=== PATIENT | female | born 1945 | race Caucasian/White ===

== ENCOUNTER 2018-06-29 02:46 | Observation (INO) | payer MEDICARE, OTHER ==
[2018-06-29] MEDS ORDERED: Aspirin Chewable 81 MG TAB ONE (03:00)
[2018-06-29] MEDS ORDERED: Nitroglycerin 2% Ointment 1 INCH/1 GM Packet ONE ×2 (03:00→15:00)
[2018-06-29] MEDS ORDERED: Nitroglycerin 0.4 MG TAB 1 EACH ONE (03:00)
[2018-06-29 03:06] LABS: #Basophils 0.1 thou/uL (0.0-0.2); #Eosinphils 0.5 thou/uL (0.0-0.7); #Lymphocytes 2.5 thou/uL (1.20-3.40); #Monocytes 0.6 thou/uL (0.11-0.59); %Basophils 1.2 % (0.0-1.0); %Eosinophils 5.2 % (0.0-10.0); %Lymphocytes 29.1 % (21.0-51.0); %Monocytes 6.8 % (0.0-10.0); %Neutrophils 57.8 % (42.0-75.0); Hemoglobin 14.4 g/dL (12.0-16.0); Mean Corpuscular HGB CONC 33.5 g/dL (32.0-36.0); Mean Corpuscular Hemoglobin 32.8 pg (27.0-31.0); Mean Platelet Volume 7.6 fL (7.4-10.4); Platelet Count 269 thou/uL (130-400); RBC Distribution Width 11.5 % (11.5-14.5); Red Blood Cell (RBC) Count 4.38 mill/uL (4.20-5.40); White Blood Cell (WBC) Count 8.7 thou/uL (4.8-10.8)
[2018-06-29 03:47] LABS: ALT (SGPT) 22 U/L (8-55); AST (SGOT) 29 U/L (5-34); Albumin 4.4 g/dL (3.4-4.8); Alkaline Phosphatase 106 U/L (40-150); Anion Gap 16 mmol/L (10-20); BUN (Urea Nitrogen) 25 mg/dL (9.8-20.1); Bilirubin, Total 0.2 mg/dL (0.2-1.2); Calc. Creatinine Clearance 0 mL/min (70-130); Calcium 10.2 mg/dL (7.8-10.44); Carbon Dioxide 22 mmol/L (23-31); Chloride 106 mmol/L (98-107); Estimated GFR-MDRD 70; Globulin 2.7 g/dL (2.4-3.5); Glucose 92 mg/dL (83-110); Potassium 4.7 mmol/L (3.5-5.1); Protein, Total 7.1 g/dL (6.0-8.3); Sodium 139 mmol/L (136-145)
[2018-06-29] MEDS ORDERED: Nitroglycerin 0.4 MG TAB (25 Tab Bottle) PO PRN (04:47)
[2018-06-29] MEDS ORDERED: Acetaminophen 325 MG TAB PO PRN (04:47)
[2018-06-29] MEDS ORDERED: hydrALAZINE 20 MG/ML VIAL SLOW IVP PRN (04:47)
[2018-06-29] MEDS ORDERED: Calcium Carbonate 500 MG ChewTAB PO PRN (04:47)
--- NOTE | 2018-06-29 05:14 | HP ---
PRIMARY CARE PHYSICIAN: Dr. Rhett Mcdonough in [place]. CHIEF COMPLAINT: "My wrist is hurting and my left arm feels heavy." HISTORY OF PRESENT ILLNESS: Ms. Moreira is a pleasant 72-year-old female who has a history of hypertension. She was in her usual state of health until last night. She says that her arm was feeling a little bit heavy before she went to bed and then she says that her granddaughter woke her up because she needed help going to the bathroom and she says that when she got up with her granddaughter, she noticed that her left wrist was very painful around the whole wrist and her left arm felt heavy and that started to go up into her chest. She says she thought it might have been that she was stressed, but the sensation concerned her, so she came to the ER for evaluation. She did not have any shortness of breath. No nausea. No vomiting. No palpitations. No neck pain. She says right now her left arm feels a little bit heavy, but there is no weakness there. She denies any weakness or heaviness in her legs, but says that she was concerned about her heart because her father in his early 40s at 42 due to a massive heart attack. She also denies any leg swelling or any leg edema. REVIEW OF SYSTEMS: All systems were reviewed and are negative, except for that mentioned in the history of present illness. PAST MEDICAL HISTORY: Significant for hypertension, depression, and macular degeneration in her right eye. PAST SURGICAL HISTORY: She has had a cholecystectomy as well as colonoscopy. She also had a stress test about a year and a half ago, which was negative. ALLERGIES: TO PENICILLIN. SHE DOES NOT REMEMBER WHAT CAUSES IT. SOCIAL HISTORY: She is . She has 2 children. She is a nonsmoker. She occasionally drinks a glass of wine and she is a full code. FAMILY HISTORY: Sister had colon cancer. Father at 42 due to heart attack. MEDICATIONS: Include duloxetine 60 mg daily, olmesartan/hydrochlorothiazide 40/25 daily, and Wellbutrin 60 mg a day. PHYSICAL EXAMINATION: GENERAL: She is well developed and well nourished. She is alert and oriented x4. VITAL SIGNS: Blood pressure was 139/78, heart rate 74, respiratory rate of 17, and temperature is 97.8. HEENT: Her pupils are equal, round, and reactive to light. Extraocular muscles are intact. Her sclerae are anicteric. Tympanic membranes pearly walker. No fluid behind the drums. No erythema. Throat, there is no erythema, no exudates. NECK: No adenopathy. No bruits. LUNGS: Clear to auscultation. I did not appreciate any wheezing, rales, or rhonchi. CARDIOVASCULAR: She had a normal S1, S2. No S3 or S4. No murmurs or clicks. No rubs. ABDOMEN: Obese. It is soft. It is nontender and nondistended. Positive for bowel sounds. There is no rebound. No guarding. No organomegaly. EXTREMITIES: There is no clubbing or cyanosis. No edema. NEUROLOGIC: Her cranial nerves 2 through 12 are intact. Muscle strength in both her upper and lower extremities are intact. She has good heel dipper strength. SKIN AND INTEGUMENT: No skin changes. No rash. DIAGNOSTIC DATA: EKG by my reading, sinus rhythm, low voltage, no ST wave changes. Chest x-ray appeared normal with normal heart size. There is no evidence of any effusion or airspace disease. Labs. Sodium is 139, potassium 4.7, chloride is 106, CO2 is 22, BUN of 25, creatinine 0.8, and glucose is 92. Troponin is less than 0.010. White blood cell count 8.7, hemoglobin 14.4, hematocrit is 42.9, and platelet count is 269. ASSESSMENT: 1. This is a pleasant 72-year-old female who presents to the emergency room with some atypical symptoms of left arm and wrist pain extending into the chest. Possibilities include arm strain. However, she denies doing any type of exertion. She says her granddaughter is 8-year-old and she did not lift her. She also has a history of coronary artery disease. Therefore, an atypical presentation of angina is a possibility, also cervical strain and even potentially a transient ischemic attack. However, she has not had any weakness. We will place her in observation and get another set of cardiac enzymes and get a nuclear stress test to help rule out coronary artery disease of the possibility. We will also get a plain x-ray of her neck to see if she has any significant degenerative joint disease. Get a lipid profile and monitor her for any signs of arrhythmia and further recommendations to follow. 2. Hypertension. We will restart her antihypertensive medications as well as p.r.n. medicines. Job ID: [id number]
[2018-06-29] MEDS ORDERED: Nitroglycerin 2% Ointment 1 INCH/1 GM Packet TOP SCH (06:00)
[2018-06-29 06:32] LABS: Troponin I Less than 0.010 ng/mL (< 0.028)
--- NOTE | 2018-06-29 07:54 | RAD ---
PORTABLE CHEST 1 VIEW: DATE: 06/29/2018. TIME: 2:55 a.m. HISTORY: Chest pain. FINDINGS: The heart size is normal. The aorta is tortuous. The lungs are expanded without focal areas of cons olidation, pneumothoraces, or pleural effusions. IMPRESSION: No radiographic evidence of acute cardiopulmonary process. POS: PENNY
--- NOTE | 2018-06-29 07:58 | RAD ---
CERVICAL SPINE 3 VIEWS: HISTORY: Left arm pain. FINDINGS: Multilevel degenerative changes are present. No fracture, subluxation, or bony destruction is identi fied. IMPRESSION: Cervical spondylosis. POS: TESS
[2018-06-29] MEDS ORDERED: Aspirin 325 mg Enteric Coated Tablet PO SCH (09:00)
[2018-06-29] MEDS ORDERED: Olmesartan 5 MG TAB PO SCH (09:00)
[2018-06-29] MEDS ORDERED: Enoxaparin Sodium 40 MG/0.4 ML SYRINGE SC SCH (09:00)
[2018-06-29 10:30] LABS: Troponin I Less than 0.010 ng/mL (< 0.028)
[2018-06-29] MEDS ORDERED: ADENOSINE 60 MG/20 ML VIAL ONE (11:46)
--- NOTE | 2018-06-29 14:27 | NM ---
CARDIAC SPECT: CLINICAL HISTORY: 72-year-old female with chest pain and hypertension. TECHNIQUE: A myocardial perfusion scan was performed using the single isotope one day protocol with technetium-9 9m sestamibi. 9 mCi were injected intravenously for the rest exam followed by 33 mCi for the stress e xam. Pharmacologic stress with Adenosine was monitored and interpreted by Rahat Dominguez NP. FINDINGS: Homogeneous tracer distribution is seen in the myocardial segments on stress and rest images without fixed or reversible defects. GATED SPECT LVEF: 85%. WALL MOTION EXAM: Normal. IMPRESSION: Normal myocardial perfusion scan. POS: OFF
[2018-06-29] MEDS ORDERED: Acetaminophen 325 MG TAB ONE (15:04)
--- NOTE | 2018-06-29 19:01 | DIS ---
DATE OF ADMISSION: 06/29/2018 DATE OF DISCHARGE: 06/29/2018 CONDITION: At the time of discharge, stable and improved. DISCHARGE DIAGNOSES: 1. Left arm numbness. Acute coronary syndrome ruled out. 2. Hypertension. PRIMARY CARE PHYSICIAN: Out of town, Dr. Rhett Mcdonough in [place]. DISCHARGE MEDICATIONS: Remain the same as admission medication. Please see admission H and P dictated by Dr. Viktor Dick earlier today. PROCEDURES DONE IN THE HOSPITAL: 1. Final x-ray which shows spondylolysis. 2. Nuclear medicine stress test which is negative for any reversible or fixed cardiac ischemia. EF estimated 85%. HISTORY OF PRESENTING ILLNESS: Ms. Moreira is a pleasant 72-year-old lady who was admitted earlier today morning by my colleague, Dr. Dick for complaints of left arm heaviness to rule out ACS. Please see admission H and P for details. Serial cardiac enzymes and stress test were done which were normal. The patient was otherwise hemodynamically stable and will be discharged home. A cervical spinal x-ray was also done which was also unremarkable. She will resume her home medications and will follow up with primary care physician in 2 to 3 weeks. I have seen and examined the patient prior to discharge. Vital signs are stable. Chest clear to auscultation bilaterally. Rate and rhythm are regular. She is awake, alert, and oriented x3. DISCHARGE PLAN: Discharge plan was discussed with the patient who verbalized understanding. Job ID: [id number]
--- NOTE | 2018-07-07 15:20 | EKG ---
Test Reason : CHEST PAIN Blood Pressure : / mmHG Vent. Rate : 083 BPM Atrial Rate : 083 BPM P-R Int : 160 ms QRS Dur : 074 ms QT Int : 360 ms P-R-T Axes : 102 037 068 degrees QTc Int : 423 ms Normal sinus rhythm Low voltage QRS No STEMI Borderline ECG Confirmed by EFRAIN BALLESTEROS M.D. ([id number]), editorial specialist CALIN GRADY ([id number]) on 07/07/2018 3:20:35 PM Referred By: Confirmed By:EFRAIN BALLESTEROS M.D.
== END 2018-06-29 17:00 | disposition home or self-care (01) ==
LOC: ERS 02:46 → ERHOLD 03:46
PROVIDERS: ADMIT Internal Medicine; ATTEND Internal Medicine
DX: R20.0 Anesthesia of skin (principal); I10 Essential (primary) hypertension; F32.9 Major depressive disorder, single episode, unspecified; I25.10 Atherosclerotic heart disease of native coronary artery without angina pectoris; Z79.899 Other long term (current) drug therapy; Z88.0 Allergy status to penicillin
CPT/HCPCS: 71045; 72040; 78452; 80053; 83880; 84484 ×2; 85025; 93005; 93017; 96360; 99285; A9500; G0378; 36415; J0153